=== PATIENT | female | born 1990 | race Caucasian/White ===

== ENCOUNTER 2021-08-11 06:04 | Inpatient (IN) | payer OTHER ==
[2021-08-11] MEDS ORDERED: CARBOPROST TROMETHAMINE 250 MCG/ML 1 ML AMP IM PRN (06:37)
[2021-08-11] MEDS ORDERED: TERBUTALINE 1 MG/ML VIAL SQ PRN (06:37)
[2021-08-11] MEDS ORDERED: METHYLERGONOVINE 0.2 MG/ML 1 ML AMP IM PRN (06:37)
[2021-08-11] MEDS ORDERED: LIDOCAINE 0.5% (PF) 5 MG/ML (50 ML SDV) SQ PRN (06:37)
[2021-08-11] MEDS ORDERED: OXYTOCIN 10 UNIT/ML 1 ML VIAL IM PRN (06:37)
[2021-08-11] MEDS ORDERED: OXYTOCIN 30 UNITS/500 ML NS 30 UNIT in SALINE 1 500ML.BAG IV SCH (06:45)
[2021-08-11] MEDS: LACTATED RINGERS 1,000 ML IV SCH ×2 (06:53→12:04)
[2021-08-11 07:05] LABS: Basophils % (A) 0 %; Eosinophils # (A) 0.1 k/uL (0-0.7); Eosinophils % (A) 2 %; HCT 38.1 % (34.0-46.0); HGB 12.5 gm/dL (11.4-16.0); Lymphocytes % (A) 29 %; MCH 28.8 pg (25.0-35.0); MCHC 32.8 g/dL (31.0-37.0); MCV 87.8 fL (80.0-100.0); Mean Platelet Volume 8.6; Monocytes # (A) 0.4 k/uL (0-1.0); Monocytes % (A) 6 %; Neutrophils # (A) 4.1 k/uL (1.3-7.7); Neutrophils % (A) 60 %; Platelet Count 209 k/uL (150-450); RBC 4.34 m/uL (3.80-5.40); RDW 14.2 % (11.5-15.5); WBC 6.8 k/uL (3.8-10.6)
--- NOTE | 2021-08-11 10:38 | P.HPOB ---
History of Present Illness H&P Date: 08/11/21 Chief Complaint: Requested induction of labor. This patient is a pleasant 31-year-old 4 para 3 female estimated date of confinement 08/18/2021 estimated gestational age 39-0/7 weeks who presents to labor and delivery for requested induction of labor. Patient's care has been uncomplicated. She is uncomfortable is now requesting induction of labor. Review of Systems Genitourinary: Reports Menstruation: Reports amenorrhea Past Medical History Past Medical History: Asthma Additional Past Medical History / Comment(s): Irritant induced asthma, pt brought inhaler with her to the hospital History of Any Multi-Drug Resistant Organisms: None Reported Past Surgical History: No Surgical Hx Reported Past Anesthesia/Blood Transfusion Reactions: No Reported Reaction Past Psychological History: No Psychological Hx Reported Smoking Status: Never smoker Past Alcohol Use History: None Reported Past Drug Use History: None Reported - Past Family History Mother History Unknown: Yes Family Medical History: Diabetes Mellitus, Hypertension Father Family Medical History: Cancer, Myocardial Infarction ([place]) Additional Family Medical History / Comment(s): Lung cancer Medications and Allergies Home Medications Medication Instructions Recorded Confirmed Type Pnv No.95/Ferrous Fum/Folic AC 1 tab PO DAILY 08/11/21 08/11/21 History [ Multivitamin Tablet] Allergies Allergy/AdvReac Type Severity Reaction Status Date / Time No Known Allergies Allergy Verified 08/11/21 06:36 Exam Vital Signs Temp Pulse Resp BP 08/11/21 06:35 97.6 F 113 H 18 132/93 Intake and Output 08/10/21 08/11/21 08/11/21 22:59 06:59 14:59 Intake Total 3.8 Balance 3.8 Intake: Intake, IV Titration 3.8 Amount Oxytocin 30 Units/500 ml 3.8 Ns 30 unit In Saline 1 500ml.bag @ Per Protocol IV .Q0M [facility] Rx#:[id number] Other: Weight 86.183 kg - OBG Physical Exam Abdomen: bowel sounds normal, no diffuse tenderness, no bruit present, no guarding noted, no hepatomegaly, no splenomegaly, no mass Vulva: both: normal Vagina: normal moisture, no discharge Cervix: no lesion (Cervix is 2 cm dilated soft and uneffaced.), no discharge Uterus: enlarged (fundal height is 38 cm) Results labs show she is O positive, rubella immune, RPR nonreactive, hepatitis B negative, rubella was immune, group B strep was negative, ultrasounds of shown normal growth and anatomy. Result Diagrams: 08/11/21 06:44 Assessment and Plan Assessment: this is a pleasant 31-year-old 4 para 3 female 39-0/7 weeks gestation admitted to labor and delivery for requested induction of labor. Plan is induction of labor and anticipate vaginal delivery. (1) 39 weeks gestation of Current Visit: Yes Status: Acute Code(s): Z3A.39 - 39 WEEKS GESTATION OF SNOMED Code(s): 58097076 (2) Elective induction of labor planned Current Visit: No Status: Acute Code(s): HPI0305 - SNOMED Code(s): 016090797
[2021-08-11] MEDS ORDERED: fentaNYL (PF) 50 MCG/ML 5 ML AMP ONE (11:41)
[2021-08-11] MEDS ORDERED: SODIUM CHLORIDE 0.9% 100 ML BAG ONE (11:41)
[2021-08-11] MEDS ORDERED: ROPIVACAINE 5MG/ML 20ML VIAL ONE (11:41)
[2021-08-11] MEDS: OXYTOCIN 30 UNITS/500 ML NS 30 UNIT in SALINE 1 500ML.BAG IV SCH ×2 (13:09→13:39)
[2021-08-11] MEDS ORDERED: ZOLPIDEM 5 MG TAB PO PRN (13:18)
[2021-08-11] MEDS ORDERED: BENZOCAINE/MENTHOL SPRAY 1 GM/SPRAY AEROSOL TOPICAL PRN (13:18)
[2021-08-11] MEDS ORDERED: ACETAMINOPHEN TAB 325 MG TAB PO PRN (13:18)
[2021-08-11] MEDS ORDERED: diphenhydrAMINE 25 MG CAP PO PRN (13:18)
[2021-08-11] MEDS ORDERED: diphenhydrAMINE 50 MG/ML 1 ML VIAL IVP PRN (13:18)
[2021-08-11] MEDS ORDERED: SENNOSIDES-DOCUSATE SODIUM 1 EACH TAB PO PRN (13:18)
[2021-08-11] MEDS ORDERED: HYDROCORTISONE 2.5% RECTAL CREAM 30 GM TUBE RECTAL PRN (13:18)
[2021-08-11] MEDS ORDERED: SIMETHICONE 80 MG CHEWABLE PO PRN (13:18)
[2021-08-11] MEDS ORDERED: LANOLIN CREAM 5 GM TUBE TOPICAL PRN (13:18)
[2021-08-11] MEDS ORDERED: bisacodyL 10 MG SUPP RECTAL PRN (13:18)
--- NOTE | 2021-08-11 13:23 | P.PROBDLV ---
Vaginal Delivery Note - . Vaginal Delivery Note: Normal vaginal delivery viable female Apgars 9 and 9 delivery time is 1305 hrs. Please see dictated H&P for intimate details of this patient's admission. Brief summary is a pleasant 31-year-old 4 para 3 female 39-0/7 weeks gestation admitted to labor and delivery for elective induction of labor. On admission patient is 2 cm dilated and has artificial rupture membranes for clear fluid. Labor is induced with Pitocin per protocol. Labor progresses and she does get an epidural at 5 cm dilated. Patient quickly thereafter progresses to complete and was approximately 2 pushes pushes the head to the perineum. Posterior perineum was supported and we have controlled delivery of the infant's head over the intact perineum. Infant's head is straight occiput anterior presentation. Mouth and nares are bulb suctioned. There is no evidence of a nuchal cord. With gentle downward traction we then have deliver the anterior and posterior shoulder and rest this infant's body. This is a vigorous viable female infant Apgars are 9 and 9 delivery time is 1305 hrs. After delivery of the infant the umbilical cords doubly clamped and cut immediately due to previous history of jaundice. The placenta is then spontaneously delivered intact. Estimated blood loss is 100 mL. Inspection of perineum shows no lacerations no repair. All counts correct 3. There are no complications. Infant and mother are stable delivery room.
[2021-08-11] MEDS: IBUPROFEN 600 MG TAB PO PRN (20:39)
[2021-08-12] MEDS: IBUPROFEN 600 MG TAB PO PRN ×2 (09:54→16:19)
[2021-08-12 17:00] VITALS: BP 118/77; PULSE 89; RESP 18; TEMP 97.9
== END 2021-08-12 16:30 | disposition home or self-care (01) | DRG 807 ==
LOC: 4FBP 06:04
PROVIDERS: ADMIT Obstetrics & Gynecology; ATTEND Obstetrics & Gynecology
PROC: 10E0XZZ Delivery of Products of Conception, External Approach (ICD-10-PCS; principal; 2021-08-11)
PROC: 00HU33Z Insertion of Infusion Device into Spinal Canal, Percutaneous Approach (ICD-10-PCS; principal; 2021-08-11)
PROC: 3E033VJ Introduction of Other Hormone into Peripheral Vein, Percutaneous Approach (ICD-10-PCS; principal; 2021-08-11)
PROC: 3E0R3BZ Introduction of Anesthetic Agent into Spinal Canal, Percutaneous Approach (ICD-10-PCS; principal; 2021-08-11)
PROC: 10907ZC Drainage of Amniotic Fluid, Therapeutic from Products of Conception, Via Natural or Artificial Opening (ICD-10-PCS; principal; 2021-08-11)
DX: O99.52 Diseases of the respiratory system complicating childbirth (principal); Z37.0 Single live birth; J45.909 Unspecified asthma, uncomplicated; Z3A.39 39 weeks gestation of pregnancy; Z79.899 Other long term (current) drug therapy; Z83.3 Family history of diabetes mellitus; Z82.49 Family history of ischemic heart disease and other diseases of the circulatory system; Z80.1 Family history of malignant neoplasm of trachea, bronchus and lung
CPT/HCPCS: 85025; 86850; 86900; 86901